=== PATIENT | male | born 1945 | race Caucasian/White ===

== ENCOUNTER → 2017-11-01 07:37 | Outpatient (CLI) | payer MEDICARE, SELFPAY ==
[2017-11-01 09:24] LABS: Calcium,Total 8.8 mg/dL (8.5-10.1)
== END ==
PROVIDERS: Family Provider Internal Medicine; PCP Internal Medicine; Visit Provider Physician Assistant
DX: D34 Benign neoplasm of thyroid gland (principal)
CPT/HCPCS: 36415; 82310; 84443

== ENCOUNTER → 2017-12-14 08:27 | Outpatient (CLI) | payer MEDICARE, SELFPAY ==
[2017-12-14 09:45] LABS: AST(SGOT) 28 U/L (15-37); Alanine Aminotransfer ALT/SGPT 41 U/L (16-61); Alkaline Phosphatase 83 U/L (45-117); Cholesterol 146 mg/dL (200); Globulin 3.1 g/dL (2.2-4.2); High Density Lipoprotein 31 mg/dL; Protein, Total 7.1 g/dL (6.4-8.2); Triglycerides 257 mg/dL; Very Low Density Lipoprotein 51 mg/dL (5-40)
== END ==
PROVIDERS: Physician Assistant Medical; Family Provider Internal Medicine; PCP Internal Medicine; Visit Provider Internal Medicine Cardiovascular Disease
DX: E78.5 Hyperlipidemia, unspecified (principal); Z79.899 Other long term (current) drug therapy
CPT/HCPCS: 36415; 80061; 80076

== ENCOUNTER → 2017-12-31 14:47 | Outpatient (CLI) | payer MEDICARE, SELFPAY ==
--- NOTE | 2017-12-31 14:47 | DT_ITS ---
This patient was seen during an EMR downtime December 24, 2017 - December 31, 2017. This patient may have a combination of paper and electronic documentation or all paper documentation. All documentation is viewable within the e-chart portion of [employer] for each patient visit.
[2017-12-31 15:49] LABS: Thyroid Stim Hormone (TSH) 5.21 uIU/mL (0.358-3.74)
== END ==
PROVIDERS: Family Provider Internal Medicine; PCP Internal Medicine; Visit Provider Surgery
DX: E03.9 Hypothyroidism, unspecified (principal)
CPT/HCPCS: 36415; 84443

== ENCOUNTER → 2018-02-27 15:32 | Outpatient (CLI) | payer MEDICARE, SELFPAY | PROVIDERS: Family Provider Internal Medicine; PCP Internal Medicine; Visit Provider Surgery | DX: E03.9 Hypothyroidism, unspecified (principal) | CPT/HCPCS: 36415; 84443 ==

== ENCOUNTER → 2018-04-26 11:49 | Outpatient (CLI) | payer MEDICARE, SELFPAY | PROVIDERS: Family Provider Internal Medicine; PCP Internal Medicine; Referring Provider Surgery; Visit Provider Surgery | DX: D34 Benign neoplasm of thyroid gland (principal) | CPT/HCPCS: 36415; 84443 ==

== ENCOUNTER → 2019-10-07 07:47 | Outpatient (CLI) | payer MEDICARE, SELFPAY ==
[2019-03-18 14:44] VITALS: BMI 27.3
[2019-10-07 09:51] LABS: AST(SGOT) 26 U/L (15-37); Alanine Aminotransfer ALT/SGPT 35 U/L (16-61); Albumin, Serum 3.9 g/dL (3.2-5.0); Alkaline Phosphatase 58 U/L (45-117); Bilirubin, Direct 0.17 mg/dL (0.00-0.30); Cholesterol 126 mg/dL (200); Globulin 2.9 g/dL (2.2-4.2); High Density Lipoprotein 37 mg/dL; Protein, Total 6.8 g/dL (6.4-8.2); Triglycerides 162 mg/dL; Very Low Density Lipoprotein 32 mg/dL (5-40)
== END ==
PROVIDERS: PCP Internal Medicine; Referring Provider Internal Medicine Cardiovascular Disease; Visit Provider Internal Medicine Cardiovascular Disease
DX: E78.00 Pure hypercholesterolemia, unspecified (principal)
CPT/HCPCS: 36415; 80061; 80076

== ENCOUNTER 2020-09-20 06:14 | Outpatient (RCR) | payer MEDICARE, SELFPAY ==
[2019-10-09 15:59] VITALS: BMI 26.6
== END 2020-09-20 23:59 ==
LOC: IMMUN 06:14
PROVIDERS: PCP Internal Medicine; Visit Provider Family Medicine
DX: Z23 Encounter for immunization (principal)
CPT/HCPCS: 0011A; 0012A

== ENCOUNTER → 2024-02-27 | Outpatient (CLI) | payer MEDICARE, SELFPAY ==
--- NOTE | 2024-02-27 10:01 | RAD_ITS ---
EXAM: XR CHEST, 2 VIEWS CLINICAL INDICATION: cad TECHNIQUE: Frontal and lateral views of the chest. COMPARISON: 08/13/2017 FINDINGS: LUNGS AND PLEURAL SPACES: No significant abnormality. No consolidation or edema. No pneumothorax. No effusion. HEART: Coronary artery calcifications are partially visualized. No cardiomegaly. MEDIASTINUM: Central airways and mediastinal contour are unremarkable. BONES/JOINTS: No significant abnormality. No acute fracture. SOFT TISSUES: No significant abnormality. VASCULATURE: Atherosclerosis. RAD/Chest PA and Lateral IMPRESSION: No acute findings in the chest. Electronically Signed: Clark Griffith DO at 23:38 EDT ,
[2024-02-27 10:43] LABS: Absolute Lymphocyte Count 2.05 X10^3/uL (0.83-4.51); Absolute Neutrophil Count 3.7 X10^3/uL (2.0-7.7); Basophil# 0.04 X10^3/uL; Basophil% 0.6 % (0-1); Eosinophil# 0.25 X10^3/uL; Eosinophils% 3.8 % (0-5); Hemoglobin 15.5 g/dL (13.0-16.5); Lymphocyte # 2.05 X10^3/ul (0.83-4.51); Lymphocyte % 31.3 % (19-41); Mean Corp Hgb Conc 33.7 g/dL (32-36); Mean Corpuscular Hgb 30.4 pg (27.0-32.0); Mean Corpuscular Volume 90.2 fL (80-94); Mean Platelet Vol. 8.3 fl (6.2-12.0); Monocyte# 0.47 X10^3/uL; Monocyte% 7.2 % (0-10); NRBC Flagged by Analyzer 0 % (0-5); Neutrophil # 3.72 X10^3/uL (2.7-7.7); Neutrophil % 56.8 % (47-70); Platelet Count 183 K/mm3 (150-450); RBC Distribution Width CV 12.8 % (11.6-14.6); RBC Distribution Width SD 42.3 fl (35.1-43.9); White Blood Count 6.6 K/mm3 (4.4-11.0)
[2024-02-27 10:51] LABS: Anion Gap 5 (5-15); BUN 12 mg/dL (7-18); BUN/Creat Ratio 12.9 RATIO (10-20); Calcium,Total 8.9 mg/dL (8.5-10.1); Chloride 109 mmol/L (98-107); Creatinine, Serum 0.93 mg/dL (0.70-1.30); EST Glomerular Filtration Rate 84 mL/min (>60); Est Glom Filt Rate - Afr Amer 102 mL/min (>60); Glucose 110 mg/dL (74-106); Potassium 3.9 mmol/L (3.5-5.1); Sodium Level 140 mmol/L (136-145)
--- NOTE | 2024-02-27 11:34 | STRESSREP ---
Stress Test Report Exercise myocardial perfusion stress test. 78-year-old man with a history of coronary artery disease Stress protocol: Resting EKG demonstrates normal sinus rhythm with interpolation of PVCs and a rate of 75 bpm resting blood pressure is 138/84 mmHg. The patient exercised according to the regular Sven protocol for a total duration of 5 minutes and 35 seconds attaining a maximum heart rate of 127 bpm which was 88% of maximum predicted heart rate; the maximum workload was 7.2 metabolic equivalents. At rest there were no ST or T wave changes noted to suggest ischemia and at peak exercise horizontal ST depression was noted in leads II, III and aVF of a maximum of approximately 1.85 mm and 2 mm noted in V6 suggestive of ischemia. These normalized during recovery. Occasional premature ventricular complexes were also noted. The patient did experience chest discomfort at peak exercise described as an ache to the left side and eased on discontinuation of the test. The peak blood pressure was 190/70 mmHg with a rate-pressure product of 19,500. Myocardial perfusion protocol. 14.1 mCi of technetium 99m sestamibi was injected at rest. The patient exercised according to regular Sven protocol for total duration of 5-1/2 minutes and at peak exercise 44.4 mCi of technetium 99m sestamibi was injected stress images were obtained stress and rest images were reconstructed in comparing the short axis vertical long and horizontal long axis. Gated images were also obtained. Perfusion SPECT analysis: Review of the stress images demonstrate normal uptake of tracer noted in all areas of the myocardium with a perfusion defect noted in the inferior apical wall. The resting images similarly demonstrate normal uptake of tracer noted in all areas of the myocardium. The above is suggestive of inferior apical ischemia at a moderate workload. Gated SPECT analysis: The gated ejection fraction is 63%. Conclusion: Abnormal exercise myocardial perfusion stress test at a moderate workload with inferior apical ischemia Preserved ejection fraction. Clinical angina noted during exercise.
== END | disposition home or self-care (01) ==
PROVIDERS: PCP Internal Medicine; Referring Provider Internal Medicine Cardiovascular Disease; Visit Provider Internal Medicine Cardiovascular Disease
DX: I25.10 Atherosclerotic heart disease of native coronary artery without angina pectoris (principal); Z95.5 Presence of coronary angioplasty implant and graft; I10 Essential (primary) hypertension
CPT/HCPCS: 36415; 71046; 78452; 80048; 85025; 93017; A9500; A4216

== ENCOUNTER 2024-03-04 06:50 | Day surgery (SDC) | payer MEDICARE, SELFPAY ==
[2024-03-03 08:54] VITALS: BMI 28.4
--- NOTE | 2024-03-04 08:36 | CL.D_ITS ---
Patient Name: ELADIA BARRERA Study Date: 03/04/2024 Performing: Gene Khalil MD Ht: 70 inches 177.8 cm : 1945 Wt: 198 lbs 89.81 kg Age: 78 Gender: male BSA: 2.08 PROCEDURE(S) PERFORMED [id number])LHC/COR/LV CLINICAL PROFILE AND INDICATIONS Indications: Stable Known CAD Heart Failure: None Stress/Imaging Date: 02/27/24Stress Test with SPECT MPI: Positive Intermediate Risk CAD Presentations: Stable angina. CONCLUSIONS Severe two-vessel disease noted in a calcified vessel and preserved ejection fraction. RECOMMENDATIONS Will consider coronary artery bypass surgery DESCRIPTION OF PROCEDURE The patient arrived to the procedure lab. The risks and benefits of the procedure as well as a full description of our services here and current unavailability of surgical backup were fully explained to the patient and/or their significant other prior to the catheterization. The Timeout was completed, verifying the correct patient and procedure. The patient's procedural site was prepped and draped in the usual fashion. Local anesthetic was given subcutaneously to right radial region with Lidocaine 2%. Using a modified Seldinger technique, arterial access was obtained via the right radial artery, a 6Fr sheath was inserted. Right Coronary Artery selective angiography was then performed in multiple views using a 5 Fr. 4.0 [place] catheter. Left Coronary Artery selective angiography was performed in multiple views using a 5 Fr. 4.0 [place] catheter. Left Ventriculography was performed in TANG projection using a 5 Fr. Pigtail catheter. LV to AO pullback pressures were then recorded.The arterial sheath was pulled and a TR Band was applied for hemostasis. 12cc air CORONARY ANGIOGRAPHY DOMINANCE: Right Dominant LEFT HEART ASSESSMENT Left Ventricular Ejection Fraction: by LV Gram 60 % Normal LV wall motion Normal Left Ventricular systolic function LEFT MAIN: Mild calcification in distal left main 30% stenosis LEFT ANTERIOR DESCENDING ARTERY: Moderate amount of calcification noted in the proximal and mid segments with a high-grade 80 to 90% stenosis noted in the midsegment after first diagonal and septal individualized education plan aide. Distally there is a 60% stenosis and diffuse disease noted in the vessel. CIRCUMFLEX ARTERY: Mild luminal irregularities less than 30% RAMUS: Previously placed stent in the proximal segment with immediate post stent 90% stenosis noted good distal target vessel noted. RIGHT CORONARY ARTERY: Moderate luminal irregularities up to 50% COMPLICATIONS No Complications PROCEDURE MEDICATIONS Fentanyl 50 mcg IV Versed 1 mg IV Oxygen: 2 L/min via nasal cannula Heparin given IA 03/04/2024 07:54:22 Verapamil 2.5mg, Ntg 100mcgs, 3000 units of Heparin given IA 03/04/2024 07:54:22 SUMMARY OF HEMODYNAMIC DATA Time AIR REST ECG 07:15:35 AO 117/48 (77) SA 08:08:39 LV 149/-12, -3 08:16:25 LV 151/-10, -1 08:16:33 LV 162/8, 20 08:17:11 LV 166/7, 18 08:17:19 LV 148/7, 22 08:18:03 LVp 144/8, 24 08:18:07 AOp 150/62 (96) 08:18:14 08:32:23 Signed By Gene Khalil MD On 03/04/2024 08:35:53 Gene Khalil MD
== END 2024-03-04 10:30 | disposition home or self-care (01) ==
PROVIDERS: PCP Internal Medicine; Referring Provider Internal Medicine Cardiovascular Disease; Visit Provider Internal Medicine Cardiovascular Disease
DX: I25.118 Atherosclerotic heart disease of native coronary artery with other forms of angina pectoris (principal); I10 Essential (primary) hypertension; E78.5 Hyperlipidemia, unspecified; Z79.82 Long term (current) use of aspirin; Z79.01 Long term (current) use of anticoagulants; Z79.899 Other long term (current) drug therapy; Z95.5 Presence of coronary angioplasty implant and graft
CPT/HCPCS: 93458; 99152; 99153; J7040; Q9967; C1769; C1894

== ENCOUNTER 2024-03-17 15:15 | Emergency (ER) | payer MEDICARE, SELFPAY ==
[2024-03-17] VITALS (8 sets, daily range): BP systolic 115–127; BP diastolic 62–73; PULSE 57–72; RESP 13–19; TEMP 36–36.8; O2SAT 94–99; BMI 28.2
--- NOTE | 2024-03-17 15:21 | EKG12_ITS ---
Test Reason : CP/DIZZY Blood Pressure : / mmHG Vent. Rate : 073 BPM Atrial Rate : 073 BPM P-R Int : 156 ms QRS Dur : 114 ms QT Int : 396 ms P-R-T Axes : 037 -42 -07 degrees QTc Int : 436 ms Normal sinus rhythm Left axis deviation Moderate voltage criteria for LVH, may be normal variant ( R in aVL , Gilles product ) Inferior infarct , age undetermined Abnormal ECG Confirmed by Anand Lake ([id number]), photographic editor BLACK GOINS ([id number]) on 03/19/2024 8:19:52 AM Referred By: ES/TL Confirmed By:Anand Lake
[2024-03-17 15:42] LABS: Absolute Lymphocyte Count 2.05 X10^3/uL (0.83-4.51); Absolute Neutrophil Count 6.6 X10^3/uL (2.0-7.7); Basophil# 0.03 X10^3/uL; Basophil% 0.3 % (0-1); Eosinophil# 0.15 X10^3/uL; Eosinophils% 1.6 % (0-5); Hematocrit 43.4 % (40-54); Hemoglobin 15.1 g/dL (13.0-16.5); Lymphocyte # 2.05 X10^3/ul (0.83-4.51); Lymphocyte % 21.6 % (19-41); Mean Corp Hgb Conc 34.8 g/dL (32-36); Mean Corpuscular Hgb 30.6 pg (27.0-32.0); Mean Platelet Vol. 8.1 fl (6.2-12.0); Monocyte# 0.62 X10^3/uL; Monocyte% 6.5 % (0-10); NRBC Flagged by Analyzer 0 % (0-5); Neutrophil % 69.7 % (47-70); Platelet Count 218 K/mm3 (150-450); RBC Distribution Width CV 12.8 % (11.6-14.6); RBC Distribution Width SD 41.1 fl (35.1-43.9); Red Blood Count 4.93 M/mm3 (4.6-6.2); White Blood Count 9.5 K/mm3 (4.4-11.0)
[2024-03-17 15:59] LABS: Anion Gap 8 (5-15); BUN 15 mg/dL (7-18); BUN/Creat Ratio 11.5 RATIO (10-20); Calcium,Total 9.6 mg/dL (8.5-10.1); Chloride 108 mmol/L (98-107); Creatinine, Serum 1.31 mg/dL (0.70-1.30); EST Glomerular Filtration Rate 56 mL/min (>60); Est Glom Filt Rate - Afr Amer 68 mL/min (>60); Estimated Creatinine Clearance 53.11 ml/min; Glucose 136 mg/dL (74-106); Sodium Level 141 mmol/L (136-145); Troponin-I HS (w/2H Reflex) 8 pg/mL (3.0-78.0)
--- NOTE | 2024-03-17 16:00 | RAD_ITS ---
INDICATION: chest pain EXAMINATION/TECHNIQUE: X-RAY - XR Chest 1 View COMPARISON: February 27, 2024 FINDINGS: LINES/DEVICES: None. LUNGS: No consolidation, edema or effusion. No pneumothorax. MEDIASTINUM AND CARDIOVASCULAR STRUCTURES: Cardiac silhouette not enlarged. Central airways and mediastinal contour are unremarkable. BONES AND SOFT TISSUES: Mild degenerative vertebral changes. RAD/Chest 1 View (Portable) IMPRESSION: No radiographic evidence of acute cardiopulmonary disease. Electronically Signed: Tej Singleton DO at 16:27 EDT ,
--- NOTE | 2024-03-17 17:17 | CT_ITS ---
INDICATION: pain EXAMINATION: CTA CHEST, ABDOMEN AND PELVIS WITH CONTRAST - TECHNIQUE: A CTA of the chest, abdomen, and pelvis is obtained with sagittal and coronal reconstructed MIP views. Three-dimensional surface rendered sequence of the thoracic and abdominal aorta was obtained. The protocol utilizes one or more of the following dose reduction techniques: automated exposure control, adjustment of mA and/or kV according to patient size,and/or use of iterative reconstruction technique. mL of Isovue-370. Oral contrast: None. RADIATION DOSAGE (If Supplied By Facility): CTDIvol = ( 14.27 ) mGy, DLP = ( 1231.13 ) mGycm COMPARISON: FINDINGS: CT CHEST: THORACIC AORTA: No atheromatous disease, no aneurysmal changes or dissection. ABDOMINAL AORTA: No aneurysm or dissection. Mild atherosclerotic calcifications without hemodynamically significant stenosis. The iliac arteries are mildly calcified. Mildly calcified bilateral renal arteries with less than 50% luminal stenosis LUNGS: The lungs are well-expanded without acute or chronic changes. No effusions or pneumothorax. MEDIASTINUM: The thyroid gland is normal. No mediastinal or hilar adenopathy. HEART: Heart is normal size. No pericardial effusion. CT ABDOMEN AND PELVIS: LIVER: The liver enhances homogeneously. Hypoattenuated of 2.3 cm lesions are noted in the liver. GALLBLADDER: The CBD is normal. Normal gallbladder. SPLEEN: Normal. PANCREAS: No masses or inflammation. ADRENAL GLANDS: 1.1 cm right adrenal nodule. KIDNEYS AND URETERS: The kidneys both enhance appropriately. There are normal size and shape. No hydronephrosis or nephrolithiasis. No renal masses or cysts. STOMACH: Normal. SMALL BOWEL: No abnormal distention of the small bowel. MESENTERY: No mesenteric inflammation. No ascites. COLON: Mild diverticulosis, masses or inflammation. The colon otherwise is normal. There is a large fatty ileocecal valve. Small fatty umbilical hernia. Fatty density in the left inguinal canal. IVC: Normal. RETROPERITONEUM: No retroperitoneal lymphadenopathy. PELVIC STRUCTURES: Normal bladder. SOFT TISSUES ABDOMEN: The anterior abdominal wall is normal. SOFT TISSUE CHEST: The extrathoracic soft tissues are normal. BONES: No fractures or significant degenerative disease. CT/CTA Chst, Abd, Pel W and/or WO IMPRESSION: Multiple hypoattenuated hepatic nodular lesions. Correlate with ultrasound if needed. Small fatty umbilical hernia. Fatty density in the left inguinal canal No aortic dissection or aneurysm. Electronically Signed: Tej Singleton DO at 18:40 EDT Reading Location ID and State: [facility] / [place] Tel [phone], Service support ,
[2024-03-17] MEDS: 0.9% Normal Saline (500mL Bag) 500 ML 999 ML IV (17:23)
[2024-03-17 17:37] LABS: Reflex Troponin-HS? (from REC) Y
[2024-03-17 18:10] LABS: Troponin-I HS 8 pg/mL (3.0-78.0)
--- NOTE | 2024-03-17 18:19 | EDS_ITS ---
HPI History of Present Illness Chief Complaint: Chest Pain Informant: patient and spouse/S.O. Narrative Narrative: Presents with spouse for evaluation pain across his upper abdomen left to right side around 1:15 PM. He sitting symptoms started. Prior to that 1 PM had visual aura bilateral eye with blurry vision there is no loss of vision. Symptoms persistent he took an antiacid did not resolve until he came to the emergency department. Significant history he states he has coronary disease had a abnormal cath by Dr. Khalil, has pending two-vessel CABG by Dr. Norman craig at [facility]. He states during a routine stress test had angina symptoms in his left upper chest leading to his heart cath. Previous to that he has had a previous stent 2010. He states the symptoms are different. Father with strong coronary disease history of MIs. Father had abdominal aneurysms repair. Patient states he has aneurysm evaluated at the age of [age] years ago. Denies any current nausea or vomiting. Symptom subsided during my evaluation. Prior Similar Symptoms: No Recent Illness/Hospitalization: No CVD Risk Factors: Positive for Hypertension, Hypercholesterolemia and Family History 1' </=55; Negative for Diabetes or Smoking PE Risk Factors: Negative for Recent Travel/Surgery, Recent Immobilization or Prior DVT or PE [facility] Medical History Cervical stenosis of spine Essential (primary) hypertension Atherosclerotic heart disease of [place] coronary artery without angina pectoris Thyroid nodule Kidney stone Hyperlipemia Home Medications ?Medication ?Instructions ?Recorded ?Last Taken ?Type aspirin 81 mg tablet,delayed 81 mg PO QDAY preventative 07/30/17 03/04/24 History release (Adult Low Dose Aspirin) tamsulosin 0.4 mg capsule (Flomax) 0.4 mg PO QDAY urine flow 07/30/17 08/12/17 History psyllium husk 3.4 gram/5.4 gram 1 tbsp PO DAILY 03/18/19 Unknown History oral powder (Metamucil) rosuvastatin 40 mg tablet 40 mg PO DAILY #30 tabs 03/18/19 Unknown History cetirizine 10 mg tablet 10 mg PO DAILY 12/08/22 03/04/24 History fluticasone propionate 50 1 spray intranasal DAILY PRN nasal 12/08/22 03/04/24 History mcg/actuation nasal congestion spray,suspension (Allergy Relief (fluticasone)) levothyroxine 112 mcg tablet 112 mcg PO DAILY 12/08/22 Unknown History (Euthyrox) lisinopril 20 mg tablet 20 mg PO DAILY #90 tabs 07/08/23 Unknown Rx metoprolol tartrate 25 mg tablet 25 mg PO BID heart #180 tabs 07/08/23 Unknown Rx amlodipine 5 mg tablet 5 mg PO DAILY #30 tabs 03/04/24 Unknown Rx isosorbide mononitrate 30 mg 30 mg PO DAILY #30 tabs 03/04/24 Unknown Rx tablet,extended release 24 hr clobetasol 0.05 % scalp solution topical 03/17/24 Unknown History Allergy/AdvReac Type Severity Reaction Status Date / Time bacitracin Allergy Unknown Rash Verified 03/17/24 15:17 polymyxin B Allergy Unknown Rash Verified 03/17/24 15:17 Family History Father Aortic aneurysm Hx of CABG Lung cancer Mother CHF (congestive heart failure) Myocardial infarction Sister Hypertension CVA (cerebral vascular accident) Hyperlipemia Surgical History History of ankle surgery (06/30/22) History of tonsillectomy History of herniorrhaphy History of squamous cell carcinoma excision History of thyroidectomy (07/2017) History of left heart catheterization (08/15/17) History of coronary artery stent placement (09/01/10) History of removal of nevus Social History (Updated 03/17/24 @ 15:34 by Laina Clemente) household members: spouse housing: house service: Yes ([employer] ) current occupational status: retired Smoking Status: Never smoker second hand exposure: No alcohol intake: current alcohol intake frequency: holidays/special occasions only Alcohol type: beer substance use type: does not use what type of physical activity do you participate in: none frequency: does not exercise seatbelt use: always ROS ROS ED Constitutional Constitutional ED: Denies chills, fever(s) or sweats Eyes Eyes: Denies change in vision ENT ENT ED: Denies dysphagia or sore throat Cardiovascular Cardiovascular: Reports chest pain; Denies leg edema, palpitations or racing heartbeat Respiratory/Chest Respiratory/Chest: Denies cough, dyspnea or dyspnea on exertion Gastrointestinal Gastrointestinal: Reports abdominal pain; Denies diarrhea, nausea or vomiting Genitourinary Genitourinary ED: Denies dysuria, hematuria or urinary frequency Musculoskeletal Musculoskeletal: Denies back pain, extremity pain or neck pain Integumentary Denies rash or wounds Neurologic Neurologic: Denies headache(s), paresthesias or weakness EXAM Physical Exam Const Vital Signs: 03/17/24 15:17 03/17/24 15:21 03/17/24 15:33 Temperature 96.8 F L Temperature Source Temporal Pulse Rate 69 Respiratory Rate 18 Respiratory Effort Normal Non-Labored Blood Pressure 125/65 H Blood Pressure Mean 85 Pulse Ox 94 Oxygen Delivery Method Room Air Room Air 03/17/24 16:15 03/17/24 17:00 03/17/24 18:00 Temperature Temperature Source Pulse Rate 66 64 66 Respiratory Rate 16 16 19 H Respiratory Effort Blood Pressure 115/62 123/64 H 127/62 H Blood Pressure Mean 79 83 83 Pulse Ox 96 98 99 Oxygen Delivery Method Room Air Room Air Room Air 03/17/24 18:54 03/17/24 19:00 03/17/24 20:00 Temperature 98 F Temperature Source Pulse Rate 59 L 57 L 58 L Respiratory Rate 13 19 H 18 Respiratory Effort Blood Pressure 122/69 H 126/73 H 121/62 H Blood Pressure Mean 86 90 81 Pulse Ox 99 99 95 Oxygen Delivery Method Room Air Room Air 03/17/24 20:50 Temperature 98.2 F Temperature Source Pulse Rate 72 Respiratory Rate 18 Respiratory Effort Blood Pressure 116/72 Blood Pressure Mean 86 Pulse Ox 97 Oxygen Delivery Method Positive well nourished and well developed General Appearance ED: well developed and NAD HEENT Reports moist mucous membranes normocephalic and atraumatic Eyes EOMs intact bilaterally and conjunctivae normal General Eye ED: Yes normal appearance of both eyes Neck no lymphadenopathy and supple General: Negative for tenderness Chest Wall Chest: Negative for tenderness Resp normal respiratory effort and normal air movement Effort and Inspection: symmetric chest movement; Negative for respiratory distress Cardio regular rate, regular rhythm and no murmurs Peripheral Pulses: pulses 2+ throughout GI normal to inspection, nondistended, normoactive bowel sounds GI Narrative: Mild tenderness epigastrium. Negative Meade's McBurney's tenderness. Palpation: Negative for guarding or rebound tenderness present Back/Spine no CVA tenderness and no thoracic nor lumbar tenderness Extremity normal to inspection General Extremety ED: Negative for edema or tenderness General Extremity: Negative for edema Neuro oriented x3 and no sensory deficits noted Sensorium / Orientation: awake and alert Skin no rashes or lesions noted and no wounds MDM MDM MDM Narrative Medical decision making narrative: Interventions / MDM: Differential diagnosis: Atypical chest pain history of coronary disease Diagnosis considered but do not suspect: ACS however EKG no ischemic findings negative cardiac enzymes. Dissection of aorta, aneurysms however CT angiograms were negative. Pancreatitis however lipase normal. My EKG interpretation: Sinus rate of 73, no ST changes, T wave version lead III. Nonspecific. Imaging independently reviewed and interpreted by myself: 1 view chest x-ray shows no acute process. CT angiogram chest abdomen pelvis: No PE, no dissection or aneurysms. Incidental findings of hepatic lobe lesions hypodensities. External documents reviewed: N/A Test considered but not ordered:N/A ED course: Patient asymptomatic on my evaluation. Triage labs were ordered initial troponin with negative. Discussed with patient history of coronary disease pending CABG in 8 days. She will father history of aortic aneurysms. Last testing was 12 years ago for the patient. Discussed further evaluation for this. CT angiogram chest abdomen pelvis for further evaluation. I did add liver enzymes and lipase. CT scans are negative incidental hepatic lobe hypodensities. Discussed results with the patient. Delta troponin was negative. 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 We feel he is safe for discharge as his different symptoms with negative workup. Will plan for his outpatient CABG procedure in 8 days. Return precaution discussed with the patient. All questions were answered. Re-evaluation: stable Disposition discussed with patient/family/significant other: Patient significant other Case discussed with consulting clinician: Cardiology Dr. Longoria This note was generated with [employer] dictation software. It may contain incorrect words, spelling, and punctuation that were not noted in checking the note before signing. Lab Data Attestation: I reviewed the patient's lab results. Labs: Laboratory Results - last 24 hr 03/17/24 03/17/24 15:30 17:37 WBC 9.5 RBC 4.93 Hgb 15.1 Hct 43.4 MCV 88.0 MCH 30.6 MCHC 34.8 RDW Std Deviation 41.1 RDW Coeff of Sheila 12.8 Plt Count 218 MPV 8.1 Immature Gran % (Auto) 0.300 Neut % (Auto) 69.7 Lymph % (Auto) 21.6 Hendricks % (Auto) 6.5 Eos % (Auto) 1.6 Baso % (Auto) 0.3 Absolute Neuts (auto) 6.6 Absolute Lymphs (auto) 2.05 Nucleated RBC % 0 Sodium 141 Potassium 4.0 Chloride 108 H Carbon Dioxide 25.0 Anion Gap 8 BUN 15 Creatinine 1.31 H Estim Creat Clear Calc 53.11 Est GFR (MDRD) Af Amer 68 Est GFR (MDRD) Non-Af 56 L BUN/Creatinine Ratio 11.5 Glucose 136 H Calcium 9.6 Total Bilirubin 0.60 Direct Bilirubin 0.17 AST 20 ALT 27 Alkaline Phosphatase 53 Troponin I High Sens 8 8 Total Protein 5.6 L Albumin 3.1 L Globulin 2.5 Lipase 42 Radiography Diagnostic Testing: Clinical Impression(s) from Imaging Studies Chest X-Ray 03/17/24 16:00 IMPRESSION: No radiographic evidence of acute cardiopulmonary disease. Electronically Signed: Tej Singleton DO at 16:27 EDT , Chest/Abdomen/Pelvis CTA 03/17/24 17:17 IMPRESSION: Multiple hypoattenuated hepatic nodular lesions. Correlate with ultrasound if needed. Small fatty umbilical hernia. Fatty density in the left inguinal canal No aortic dissection or aneurysm. Electronically Signed: Tej Singleton DO at 18:40 EDT , Discharge Plan Triage Chief Complaint: Chest Pain ED Provider: Ck Romero Dx/Rx/DC Orders Clinical Impression: Chest pain, Abdominal pain Instructions: Abdominal Pain, ED Chest Pain, Uncertain Cause Prescriptions: No Action tamsulosin [Flomax] 0.4 mg capsule,extended release 24hr 0.4 mg PO QDAY aspirin [Adult Low Dose Aspirin] 81 mg tablet,delayed release (DR/EC) 81 mg PO QDAY rosuvastatin 40 mg tablet 40 mg PO DAILY Qty: 30 Patient Comments: TAKE 1 TABLET BY MOUTH EVERY DAY Metamucil 3.4 gram/5.4 gram powder 1 tbsp PO DAILY levothyroxine [Euthyrox] 112 mcg tablet 112 mcg PO DAILY cetirizine 10 mg tablet 10 mg PO DAILY fluticasone propionate [Allergy Relief (fluticasone)] 50 mcg/actuation spray,suspension 1 spray intranasal DAILY PRN (Reason: nasal congestion) Rx Instructions: administer into each nostril clobetasol 0.05 % solution TOPICAL Patient Comments: PLEASE SEE ATTACHED FOR DETAILED DIRECTIONS lisinopril 20 mg tablet 20 mg PO DAILY Qty: 90 3RF metoprolol tartrate 25 mg tablet 25 mg PO BID Qty: 180 3RF amlodipine 5 mg tablet 5 mg PO DAILY Qty: 30 1RF isosorbide mononitrate 30 mg tablet extended release 24 hr 30 mg PO DAILY Qty: 30 1RF Primary Care Provider: Bart Waterman Referrals: Bart Waterman MD [Primary Care Provider] - 1 Week Activity Restrictions/Additional Instructions: Cardiac workup negative. You had CTA chest abdomen pelvis negative for any aort ic pathology. Incidental findings of hepatic lesions of 2.3 cm in dimensions. Follow-up with your doctor for further testing as needed. Discussed with your cardiology team Dr. Longoria through the ED. Plan for your outpatient surgical intervention as planned. Print Language: Bangladeshi Disposition Disposition: Home, Self Care Discharge Date/Time: 03/17/24 20:50
[2024-03-17 18:39] LABS: AST(SGOT) 20 U/L (15-37); Alanine Aminotransfer ALT/SGPT 27 U/L (16-61); Albumin, Serum 3.1 g/dL (3.2-5.0); Alkaline Phosphatase 53 U/L (45-117); Bilirubin, Direct 0.17 mg/dL (0.00-0.30); Globulin 2.5 g/dL (2.2-4.2); Lipase 42 U/L (13-75); Protein, Total 5.6 g/dL (6.4-8.2)
--- NOTE | 2024-03-17 20:13 | ED.RN ---
Left message with call center, . They stated that they will call back.
== END 2024-03-17 20:50 | disposition home or self-care (01) ==
PROVIDERS: Emergency Provider Emergency Medicine; PCP Internal Medicine; Visit Provider Emergency Medicine
DX: R07.9 Chest pain, unspecified (principal); R10.10 Upper abdominal pain, unspecified; K76.9 Liver disease, unspecified; I25.10 Atherosclerotic heart disease of native coronary artery without angina pectoris; I10 Essential (primary) hypertension; E78.5 Hyperlipidemia, unspecified; H53.8 Other visual disturbances; Z79.82 Long term (current) use of aspirin; Z79.890 Hormone replacement therapy; Z79.899 Other long term (current) drug therapy; Z95.1 Presence of aortocoronary bypass graft; Z95.5 Presence of coronary angioplasty implant and graft
CPT/HCPCS: 71045; 71275; 74174; 80048; 80076; 83690; 84484; 85025; 93005; 96360; 99284; J7040; Q9967; A4216

== ENCOUNTER → 2024-06-23 | Outpatient (CLI) | payer MEDICARE, SELFPAY ==
[2024-06-23 11:12] LABS: Anion Gap 5 (5-15); BUN 7 mg/dL (7-18); BUN/Creat Ratio 9.5 RATIO (10-20); Calcium,Total 9.4 mg/dL (8.5-10.1); Chloride 109 mmol/L (98-107); Creatinine, Serum 0.74 mg/dL (0.70-1.30); EST Glomerular Filtration Rate 109 mL/min (>60); Est Glom Filt Rate - Afr Amer 132 mL/min (>60); Glucose 74 mg/dL (74-106); Potassium 3.4 mmol/L (3.5-5.1); Sodium Level 142 mmol/L (136-145)
== END | disposition home or self-care (01) ==
PROVIDERS: PCP Internal Medicine; Referring Provider Nurse Practitioner Family; Visit Provider Nurse Practitioner Family
DX: I10 Essential (primary) hypertension (principal)
CPT/HCPCS: 36415; 80048

== ENCOUNTER 2024-11-10 04:49 | Emergency (ER) | payer MEDICARE, SELFPAY ==
[2024-11-10 04:50] VITALS: PULSE 61; RESP 17; TEMP 36.5; O2SAT 99; BMI 28.3
[2024-11-10 04:53] VITALS: BP 184/85; PULSE 63; RESP 18; TEMP 36.5; O2SAT 100
--- NOTE | 2024-11-10 05:04 | CT_ITS ---
PROCEDURE: ABDOMEN/PELVIS W IV CONT ONLY 11/10/2024 REASON FOR EXAM: UPPER ABD PAIN, NAUSEA TECHNIQUE: Abdomen and pelvis CT with intravenous contrast. Coronal and Sagittal reconstruction series were provided. PATIENT PREPARATION: Per protocol ORAL CONTRAST TYPE: None. CONTRAST: 98 cc Isovue 370 IV One or more dose reduction techniques were used (e.g., Automated exposure control, adjustment of the mA and/or kV according to patient size, use of iterative reconstruction technique. RADIATION DOSE SUMMARY: CTDlvol: 18.11 mGy DLP: 980.46 mGycm COMPARISON: None available FINDINGS: Small bandlike area at the posterior right base may represent atelectasis or scar. A couple of subpleural noncalcified nodules suggested at the left posterior recess measuring 6-7 mm for example axial 23. May consider follow-up nonemergent chest CT, correlate with history. Status post median sternotomy with note of epicardial pacing wires. Right coronary calcification. Multiple hepatic cysts, incidental. The liver, gallbladder, adrenal glands, kidneys, pancreas and spleen appear within limits. Bilateral symmetric nephrograms and perinephric stranding, nonspecific without hydronephrosis. Aortoiliac atherosclerotic calcification without aneurysm. No adenopathy. No bowel dilation or free air. Normal caliber appendix without secondary signs. Diverticulosis without diverticulitis. The bladder appears within limits. Enlarged, mildly lobular appearing prostate measuring 5.3 cm. Small fat containing left inguinal hernia without stranding. Status post right herniorrhaphy. Very small fat containing umbilical hernia without stranding. No free fluid. Lower lumbar spondylosis/discogenic change. CT/Abdomen/Pelvis W IV Cont ONLY IMPRESSION: No evidence of acute intra-abdominal process, clinically correlate. A couple of subpleural noncalcified nodules suggested at the left posterior rec ess measuring 6-7 mm for example axial 23. May consider follow-up nonemergent chest CT, correlate with history. Reading Location: [id number]
--- NOTE | 2024-11-10 05:07 | ED.VIS.GI ---
HPI HPI - GI History of Present Illness Chief Complaint: Abd Pain Informant: patient Narrative Narrative: 79-year-old male presents around 5 AM for about 3 hours worth of upper abdominal pain wrapping around like a band across his upper abdomen and into his back. Some nausea but no vomiting. Steady pain not colicky. He is getting sharp occasional twinges of more severe discomfort in his right upper quadrant. Never had this before. No history of any abdominal surgeries. Normal bowel movement last night. Ate some potato chips for he went to bed. Denies any chest discomfort or trouble breathing. No fevers or chills or other recent illness. No diarrhea when he had a bowel movement last night and no blood or melena. [facility] Medical History Cervical stenosis of spine Essential (primary) hypertension Atherosclerotic heart disease of [place] coronary artery without angina pectoris Thyroid nodule Kidney stone Hyperlipemia Home Medications ?Medication ?Instructions ?Recorded ?Last Taken ?Type aspirin 81 mg tablet,delayed 81 mg PO QDAY preventative 07/30/17 03/04/24 History release (Adult Low Dose Aspirin) tamsulosin 0.4 mg capsule (Flomax) 0.4 mg PO QDAY urine flow 07/30/17 08/12/17 History psyllium husk 3.4 gram/5.4 gram 1 tbsp PO DAILY 03/18/19 Unknown History oral powder (Metamucil) rosuvastatin 40 mg tablet 40 mg PO DAILY #30 tabs 03/18/19 Unknown History cetirizine 10 mg tablet 10 mg PO DAILY 12/08/22 03/04/24 History fluticasone propionate 50 1 spray intranasal DAILY PRN nasal 12/08/22 03/04/24 History mcg/actuation nasal congestion spray,suspension (Allergy Relief (fluticasone)) levothyroxine 112 mcg tablet 112 mcg PO DAILY 12/08/22 Unknown History (Euthyrox) lisinopril 20 mg tablet 20 mg PO BID #180 tabs 06/06/24 Unknown Rx amlodipine 5 mg tablet 5 mg PO QDAY #30 tabs 06/26/24 Unknown Rx metoprolol tartrate 25 mg tablet 25 mg PO BID heart #180 tabs 08/06/24 Unknown Rx clobetasol 0.05 % scalp solution 1 applic topical 11/10/24 Unknown History Allergy/AdvReac Type Severity Reaction Status Date / Time bacitracin Allergy Unknown Rash Verified 11/10/24 04:50 polymyxin B Allergy Unknown Rash Verified 11/10/24 04:50 Family History Father Aortic aneurysm Hx of CABG Lung cancer Mother CHF (congestive heart failure) Myocardial infarction Sister Hypertension CVA (cerebral vascular accident) Hyperlipemia Surgical History S/P CABG x 2 History of ankle surgery (06/30/22) History of tonsillectomy History of herniorrhaphy History of squamous cell carcinoma excision History of thyroidectomy (07/2017) History of left heart catheterization (08/15/17) History of coronary artery stent placement (09/01/10) History of removal of nevus Social History household members: spouse housing: house current occupational status: retired Smoking Status: Never smoker second hand exposure: No alcohol intake: current alcohol intake frequency: holidays/special occasions only Alcohol type: beer substance use type: does not use caffeine: Yes Type: coffee Number of servings: 2 what type of physical activity do you participate in: none frequency: does not exercise seatbelt use: always ROS ROS ED Constitutional Constitutional ED: Denies chills or fever(s) Eyes Eyes: Denies change in vision or diplopia ENT ENT ED: Denies rhinorrhea or sore throat Cardiovascular Cardiovascular: Denies chest pain or palpitations Respiratory/Chest Respiratory/Chest: Denies cough or dyspnea Gastrointestinal Gastrointestinal: Reports abdominal pain and nausea; Denies diarrhea, hematochezia, melena or vomiting Genitourinary Genitourinary ED: Denies dysuria or hematuria Musculoskeletal Musculoskeletal: Reports back pain; Denies neck pain Integumentary Denies abscess or rash Neurologic Neurologic: Denies headache(s), paresthesias or weakness Psychiatric Psychiatric: Denies anxiety or suicidal thoughts EXAM Physical Exam Const Vital Signs: 11/10/24 04:50 11/10/24 04:53 11/10/24 05:53 Temperature 97.7 F L 97.7 F L 97.7 F L Temperature Source Oral Oral Oral Pulse Rate 61 63 58 L Respiratory Rate 17 18 16 Blood Pressure 184/85 H 152/68 H Blood Pressure Mean 118 96 Pulse Ox 99 100 97 Oxygen Delivery Method Room Air Room Air Room Air Positive well nourished and well developed General Appearance ED: well developed and NAD HEENT Reports moist mucous membranes normocephalic and atraumatic Eyes PERRL and EOMs intact bilaterally Neck full ROM and supple Resp normal respiratory effort and clear to auscultation bilaterally Cardio regular rate, regular rhythm and no murmurs GI non-distended GI Narrative: Tender in the epigastrium and right upper quadrant. Negative Meade's. More tender in the epigastrium than anywhere else, and has some twinges of involuntary guarding but no rebound tenderness. No lower abdominal tenderness. No pulsatile mass. Auscultation: normoactive bowel sounds Palpation: soft Back/Spine no CVA tenderness General Back: other FROM Extremity normal to inspection General Extremety ED: Negative for edema, pulses abnormal or tenderness General Extremity: Negative for edema or pulses abnormal Neuro oriented x3, CN's II-XII intact bilaterally and no sensory deficits noted Sensorium / Orientation: awake and alert Motor Exam: strength 5/5 throughout Skin no rashes or lesions noted and no wounds MDM MDM MDM Narrative Medical decision making narrative: Patient is in no distress, he states the pain is not severe, his blood pressure is 184/85 on initial presentation. Differential includes cholelithiasis/biliary colic, acute pancreatitis, AAA, right-sided kidney stone/obstructive uropathy, less likely right lower lobe pneumonia since he has been no symptoms of that, and also possible upper GI etiologies. Patient presents when ultrasound is not in the hospital, so I did a screening bedside ultrasound of his gallbladder given his age, he does have a mild positive sonographic Meade's, as well as a negative clinical Meade sign, but I see no evidence of cholelithiasis, gallbladder wall thickening, it is a little distended but not necessarily abnormally so, and I do not see any pericholecystic fluid to make acute cholecystitis the obvious diagnosis. For these reasons, we treated his pain and obtained labs as well as a CT of the abdomen/pelvis. Those labs are all normal and reviewed by myself, his urine is unremarkable ruling out infection. I reviewed the CT images as well as the results which I agree with, it is basically normal/negative nothing acute. On reevaluation after Toradol 10 mg and morphine 2 mg, his pain is resolved. I reexamined him. He is nontender throughout. His lipase is normal. I do not think he needs to be admitted to the hospital, his blood pressure is down to 152. I think getting an official ultrasound of his gallbladder would be most reasonable and having him follow-up with surgery as an outpatient, or return to the ER for recurrent significant symptoms. He is comfortable with that plan. Lab Data Attestation: I reviewed the patient's lab results. Labs: Laboratory Results - last 24 hr 11/10/24 11/10/24 11/10/24 04:45 04:55 05:55 WBC 7.7 RBC 5.19 Hgb 16.2 Hct 45.5 MCV 87.7 MCH 31.2 MCHC 35.6 RDW Std Deviation 43.3 RDW Coeff of Sheila 13.5 Plt Count 190 MPV 8.3 Immature Gran % (Auto) 0.300 Neut % (Auto) 48.1 Lymph % (Auto) 36.4 [place] % (Auto) 9.1 Eos % (Auto) 5.7 H Baso % (Auto) 0.4 Absolute Neuts (auto) 3.7 Absolute Lymphs (auto) 2.80 Nucleated RBC % 0 Sodium 143 Potassium 4.7 Chloride 105 Carbon Dioxide 25.7 Anion Gap 12 BUN 14 Creatinine 0.96 Estim Creat Clear Calc 69.23 Est GFR (MDRD) Non-Af 81 BUN/Creatinine Ratio 14.2 Glucose 105 H Calcium 9.8 Total Bilirubin 0.43 AST 42 H ALT 32 Alkaline Phosphatase 80 Total Protein 6.8 Albumin 4.3 Globulin 2.5 Albumin/Globulin Ratio 1.7 Lipase 63 Urine Color Yellow Urine Clarity Clear Urine pH 6.5 Ur Specific [place] 1.010 Urine Protein 30 H Urine Glucose (UA) Normal Urine Ketones Negative Urine Occult Blood 10 H Urine Nitrite Negative Urine Bilirubin Negative Urine Urobilinogen Normal Ur Leukocyte Esterase Negative Urine RBC 0-5 SEEN Urine WBC 0 SEEN Ur Squamous Epith Cells 0-5 SEEN Urine Bacteria 0 SEEN Urine Mucus 0 SEEN U Random Total Protein Cancelled Radiography Diagnostic Testing: Clinical Impression(s) from Imaging Studies Abdomen/Pelvis CT 11/10/24 05:04 IMPRESSION: No evidence of acute intra-abdominal process, clinically correlate. A couple of subpleural noncalcified nodules suggested at the left posterior recess measuring 6-7 mm for example axial 23. May consider follow-up nonemergent chest CT, correlate with history. Reading Location: [facility] Discharge Plan Triage Chief Complaint: Abd Pain ED Provider: Olegario Puente Dx/Rx/DC Orders Clinical Impression: Acute abdominal pain in right upper quadrant, Acute epigastric pain Instructions: ED Abdominal Pain Gallstone Poss, ED Epigastric Pain Uncertain Cause Prescriptions: No Action tamsulosin [Flomax] 0.4 mg capsule,extended release 24hr 0.4 mg PO QDAY aspirin [Adult Low Dose Aspirin] 81 mg tablet,delayed release (DR/EC) 81 mg PO QDAY rosuvastatin 40 mg tablet 40 mg PO DAILY Qty: 30 Patient Comments: TAKE 1 TABLET BY MOUTH EVERY DAY Metamucil 3.4 gram/5.4 gram powder 1 tbsp PO DAILY levothyroxine [Euthyrox] 112 mcg tablet 112 mcg PO DAILY cetirizine 10 mg tablet 10 mg PO DAILY fluticasone propionate [Allergy Relief (fluticasone)] 50 mcg/actuation spray,suspension 1 spray intranasal DAILY PRN (Reason: nasal congestion) Rx Instructions: administer into each nostril metoprolol tartrate 25 mg tablet 25 mg PO BID Qty: 180 3RF clobetasol 0.05 % solution 1 applic TOPICAL Patient Comments: APPLY FEW DROPS ALONG HAIRLINE & MASSAGE INTO SKIN 1-2X DAILY X2 WKS, THEN TAKE 1 WK BREAK lisinopril 20 mg tablet 20 mg PO BID Qty: 180 3RF amlodipine 5 mg tablet 5 mg PO QDAY Qty: 30 11RF Other Ambulatory Orders: Gallbladder (Routine) Facility: [facility] - Location: [facility] Ordered By: Dr. Olegario Puente Primary Care Provider: Bart Waterman Referrals: Ottoniel Rosas MD [Med Staff - Active Staff] - (call for appt to be seen at some point after your gallbladder ultrasound) Bart Waterman MD [Primary Care Provider] - Print Language: French Disposition Disposition: Home, Self Care
[2024-11-10] MEDS: Morphine 2 MG/ML Syringe IV (05:11)
[2024-11-10] MEDS: Ketorolac 15 MG/ML Vial IV (05:11)
[2024-11-10] MEDS: Ondansetron 4 MG/2 ML Vial IV (05:11)
[2024-11-10 05:22] LABS: Absolute Neutrophil Count 3.7 X10^3/uL (2.0-7.7); Basophil# 0.03 X10^3/uL; Basophil% 0.4 % (0-1); Eosinophil# 0.44 X10^3/uL; Eosinophils% 5.7 % (0-5); Hematocrit 45.5 % (40-54); Hemoglobin 16.2 g/dL (13.0-16.5); Lymphocyte % 36.4 % (19-41); Mean Corp Hgb Conc 35.6 g/dL (32-36); Mean Corpuscular Hgb 31.2 pg (27.0-32.0); Mean Corpuscular Volume 87.7 fL (80-94); Mean Platelet Vol. 8.3 fl (6.2-12.0); Monocyte% 9.1 % (0-10); NRBC Flagged by Analyzer 0 % (0-5); Neutrophil # 3.71 X10^3/uL (2.7-7.7); Neutrophil % 48.1 % (47-70); Platelet Count 190 K/mm3 (150-450); RBC Distribution Width CV 13.5 % (11.6-14.6); RBC Distribution Width SD 43.3 fl (35.1-43.9); Red Blood Count 5.19 M/mm3 (4.6-6.2); White Blood Count 7.7 K/mm3 (4.4-11.0)
[2024-11-10 05:53] VITALS: BP 152/68; PULSE 58; RESP 16; TEMP 36.5; O2SAT 97
[2024-11-10 06:06] LABS: Bacteria 0 SEEN /hpf (None Seen); Mucous, Urine 0 SEEN /hpf (<or=2+); White Blood Cells 0 SEEN /hpf (0-5)
[2024-11-10 06:07] LABS: Color, Urine Yellow (Yellow); Glucose, Dipstick Normal (Normal); Ketone-Dipstick Negative (Negative); Leukocyte Esterase-Dipstick Negative /ul (Negative); Nitrite-Dipstick Negative (Negative); Occult Blood-Urine 10 /ul (Negative); Urine Bilirubin Dipstick Negative (Negative); Urine Clarity Clear (Clear); Urine Urobilinogen Normal (Normal); Urine pH 6.5 (5.0 - 8.0)
[2024-11-10 06:21] LABS: Protein-Dipstick 30 mg/dl (Negative)
[2024-11-10 06:21] LABS: Lipase 63 U/L (13-75)
[2024-11-10 06:22] LABS: Red Blood Cells-Urine 0-5 SEEN /hpf (0-5); Squamous Epithelial Cells - UA 0-5 SEEN /hpf (0-5)
[2024-11-10 06:23] LABS: ALB/GLOB Ratio 1.7 RATIO (0.9-2.4); AST(SGOT) 42 U/L (<=37); Alanine Aminotransfer ALT/SGPT 32 U/L (<=46); Albumin, Serum 4.3 g/dL (3.4-4.8); Alkaline Phosphatase 80 U/L (40-129); Anion Gap 12 (5-15); BUN 14 mg/dL (4-19); BUN/Creat Ratio 14.2 RATIO (10-20); Calcium,Total 9.8 mg/dL (7.6-11.0); Carbon Dioxide 25.7 mmol/L (21.0-32.0); Chloride 105 mmol/L (98-108); Creatinine, Serum 0.96 mg/dL (0.70-1.20); EST Glomerular Filtration Rate 81 (>60); Estimated Creatinine Clearance 69.23 ml/min (50-250); Globulin 2.5 g/dL (2.2-4.2); Glucose 105 mg/dL (70-99); Potassium 4.7 mmol/L (3.3-5.1); Protein, Total 6.8 g/dL (5.9-8.4); Sodium Level 143 mmol/L (133-145); Total Bilirubin 0.43 mg/dL (0.00-1.30)
== END 2024-11-10 06:47 | disposition home or self-care (01) ==
PROVIDERS: Emergency Provider Emergency Medicine; PCP Internal Medicine; Visit Provider Emergency Medicine
DX: R10.11 Right upper quadrant pain (principal); R10.13 Epigastric pain; R11.0 Nausea; I25.10 Atherosclerotic heart disease of native coronary artery without angina pectoris; I10 Essential (primary) hypertension; E78.5 Hyperlipidemia, unspecified
CPT/HCPCS: 74177; 80053; 81001; 83690; 85025; 96374; 96375; 99283; Q9967; A4216; J2405

== ENCOUNTER → 2024-11-12 | Outpatient (CLI) | payer MEDICARE, SELFPAY ==
--- NOTE | 2024-11-12 07:24 | US_ITS ---
PROCEDURE: ABDOMEN LIMITED 11/12/2024 REASON FOR EXAM: PAIN RUQ, NAUSEA History of hepatic cysts. COMPARISON: Comparison is made with prior CT scan dated November 10, 2024. FINDINGS: Liver: Diffusely echogenic suggesting fatty infiltration. There is a 2.5 cm x 2.3 cm 1.4 cm cyst in the right lobe of the liver. There is also evidence of a 1.2 cm x 1.7 cm x 0.9 cm cyst in the left lobe of the liver. Several smaller cysts are also seen. Gallbladder: Small amount of sludge is seen in the gallbladder lumen. The gallbladder wall is mildly thickened measuring 4 mm. Common bile duct: Normal measuring it measures 3 mm.. Pancreas: Visualized portions are sonographically unremarkable. Other: Visualized portions of the right kidney are unremarkable. No right upper quadrant ascites. US/Abdomen Limited IMPRESSION: Hepatic cysts. Small amount of sludge is seen in the gallbladder lumen. Minimal thickening of the gallbladder wall measuring 4 mm. Reading Location: [place] [id number]
== END | disposition home or self-care (01) ==
LOC: US 07:24
PROVIDERS: PCP Internal Medicine; Referring Provider Emergency Medicine; Visit Provider Emergency Medicine
DX: R10.11 Right upper quadrant pain (principal); R11.0 Nausea
CPT/HCPCS: 76705

== ENCOUNTER 2024-12-04 11:47 | Day surgery (SDC) | payer MEDICARE, SELFPAY ==
--- NOTE | 2024-12-02 10:10 | EKG12_ITS ---
Test Reason : PREOP Blood Pressure : */* mmHG Vent. Rate : 50 BPM Atrial Rate : 50 BPM P-R Int : 158 ms QRS Dur : 118 ms QT Int : 456 ms P-R-T Axes : 68 -40 -40 degrees QTcB Int : 415 ms Sinus bradycardia Left axis deviation Left ventricular hypertrophy with QRS widening Nonspecific ST and T wave abnormality Abnormal ECG Confirmed by Anand Lake ([id number]), manager editorial [employer] ([id number]) on 12/04/2024 10:08:15 AM Referred By: Ottoniel Rosas Confirmed By: Anand Lake
--- NOTE | 2024-12-02 12:35 | PAT.ANE_ITS ---
Pre-Assessment Diagnosis/Proposed Procedure Planned Operative Procedure(s): ROBOTIC CHOLECYSTECTOMY Anesthesia History Anesthesia History - head of transport logistics: Anesthesia History - head of transport logistics Hx Hospitalization Yes: 03/2024 DOUBLE BYPASS 11/28/24 11:08 Any Problems With Anesthesia No 11/28/24 11:08 Cholinesterase deficiency No 11/28/24 11:08 You/Your Family Experience No 11/28/24 11:08 fever (hyperthermia) with Relationship Recent Exposure to Contagious Disease Does patient have nerve No 11/28/24 11:08 stimulator Patient instructed to have device shut off --Does patient have Pacemaker or ICD? When Was Last Pacemaker Check QUESTION #4 FULL TEXT: You/Your Family Experience fever (hyperthermia) with Anesthesia Last Oral Intake Last Oral intake: Last Oral Intake NPO since Meds taken in AM with sips of water? 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 - head of transport logistics: PONV - head of transport logistics Female No 11/28/24 11:08 HX of Motion Sickness No 11/28/24 11:08 HX of N/V After Surgery No 11/28/24 11:08 Non-Smoker Yes 11/28/24 11:08 Duration of Surgery greater Yes 11/28/24 11:08 than 60 minutes Number of Risk Factors 2 11/28/24 11:08 PONV Score Moderate Risk 11/28/24 11:08 Height & Weight Height & Weight: Anesthesia: Height & Weight Height 5 ft 9 in 11/19/24 09:54 Respiratory Assessment Respiratory Assessment - head of transport logistics: Respiratory Tract Infection Hx - head of transport logistics Hx Respiratory Tract Infection No 11/28/24 11:08 STOP Sleep Apnea STOP Sleep Apnea - head of transport logistics: STOP Sleep Apnea - head of transport logistics Hx Hypertension Yes: CONTROLLED WITH MEDS 11/28/24 11:08 Hx Sleep Apnea No 11/28/24 11:08 CPAP No 08/13/17 14:03 BIPAP No 08/13/17 14:03 Do you snore loudly (louder Yes 11/28/24 11:08 than talking or can be heard Do you often feel tired/ No 11/28/24 11:08 fatigued/ sleepy during daytime? Has anyone observed you stop No 11/28/24 11:08 breathing during sleep? STOP Results Positive 11/28/24 11:08 QUESTION #5 FULL TEXT : Do you snore loudly (louder than talking or can be heard through closed doors)? 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 Use History - head of transport logistics: Tobacco Use History - head of transport logistics Tobacco Use Smoking Status Former smoker 11/28/24 11:08 Hx Tobacco Use No 11/28/24 11:08 Years Smoking Packs Smoked per Day Smoking Cessation Date was No - quit smoking greater 11/28/24 11:08 within the last 15 years than 15 years ago Hx Smoking Cessation Date Hx Smoking Cessation No 11/28/24 11:08 Counseling Hematologic Medial History Hematologic Hx - head of transport logistics: Hematologic Medical Hx - slab inspector Hx of Blood Transfusion Yes 11/28/24 11:08 Hx of Transfusion in last 3 No 11/28/24 11:08 Months Date of Last Transfusion (if within last 3 months) Ever experience any problems No 11/28/24 11:08 with transfusion(s)? Specify any problems Hx of Preganancy in last 3 N/A 11/28/24 11:08 Months Nurse Filling Out Transfusion DSCHRIBER 11/28/24 11:08 & Questions: Date: 11/28/24 11/28/24 11:08 Time: 11:11 11/28/24 11:08 Patient unable to answer at this time (ie. confused, unrespo /Reproduction History /Reproductive History - head of transport logistics: /Reproductive Hx- head of transport logistics Hx Now No 11/28/24 11:08 Gestational Age (in weeks): EDC: Hx Hx Para Hx Section SAB No 11/28/24 11:08 Active Medications Active Medications: Current Medications Generic Name Dose Route Start Last Admin Trade Name Freq PRN Reason Stop Dose Admin Indocyanine Green 3.75 mg/ N/A 1.5 mls @ 999 mls/hr 12/04/24 13:30 IV 12/04/24 13:31 PREOP [facility] Medical History Wears hearing aid Wears glasses Wears dentures Alcohol use Thyroid disease Arthritis Prostate disease DDD (degenerative disc disease), lumbar DDD (degenerative disc disease), cervical Syncope History of ulceration Former smoker Shortness of breath on exertion Cardiology follow-up encounter History of echocardiogram History of stress test Constipation Gallbladder problem Cervical stenosis of spine Essential (primary) hypertension Atherosclerotic heart disease of [place] coronary artery without angina pectoris Hyperlipemia Home Medications ?Medication ?Instructions ?Recorded ?Last Taken ?Type aspirin 81 mg tablet,delayed 81 mg PO QDAY preventativ e 07/30/17 03/04/24 History release (Adult Low Dose Aspirin) tamsulosin 0.4 mg capsule (Flomax) 0.4 mg PO QHS urine flow 07/30/17 08/12/17 History psyllium husk 3.4 gram/5.4 gram 1 tbsp PO DAILY Unknown History oral powder (Metamucil) rosuvastatin 40 mg tablet 40 mg PO QHS #30 tabs Unknown History cetirizine 10 mg tablet 10 mg PO DAILY 12/08/2202/20 History fluticasone propionate 50 1 spray intranasal DAILY PRN nasal 12/08/22 03/04/24 History mcg/actuation nasal congestion spray,suspension (Allergy Relief (fluticasone)) levothyroxine 112 mcg tablet 112 mcg PO DAILY 12/08/22 Unknown History (Euthyrox) lisinopril 20 mg tablet 20 mg PO BID #180 tabs 06/06 Unknown Rx amlodipine 5 mg tablet 5 mg PO QDAY #30 tabs Unknown Rx metoprolol tartrate 25 mg tablet 25 mg PO BID heart #1 80 tabs 08/06/24 Unknown Rx clobetasol 0.05 % scalp solution 1 applic topical PRN PRN SCALP 11/10/24 Unknown History Allergy/AdvReac Type Severity Reaction Status Date / Time bacitracin Allergy Unknown Rash Verified 11/28/24 11:04 polymyxin B Allergy Unknown Rash Verified 11/28/24 11:04 Family History Father Aortic aneurysm Hx of CABG Lung cancer Mother CHF (congestive heart failure) Myocardial infarction Sister Hypertension CVA (cerebral vascular accident) Hyperlipemia Surgical History S/P CABG x 2 History of ankle surgery (06/30/22) History of tonsillectomy History of herniorrhaphy History of squamous cell carcinoma excision History of thyroidectomy (07/2017) History of left heart catheterization (08/15/17) History of coronary artery stent placement (09/01/10) History of removal of nevus Social History household members: spouse housing: house current occupational status: retired Smoking Status: Former smoker second hand exposure: No alcohol intake: current alcohol intake frequency: holidays/special occasions only Alcohol type: beer substance use type: does not use caffeine: Yes Type: coffee Number of servings: 2 what type of physical activity do you participate in: none frequency: does not exercise seatbelt use: always Recommendation Anesthesia Recommendation Anesthesia recommendation: F/U recommended (New EKG prior to surgery )
--- NOTE | 2024-12-02 15:53 | PAT.ANESEVAL ---
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 When Was Last Pacemaker Check QUESTION #4 FULL TEXT: You/Your Family Experience fever (hyperthermia) with Anesthesia Last Oral Intake Last Oral intake: Last Oral Intake NPO since Meds taken in AM with sips of water? 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 Has anyone observed you stop No 11/28/24 11:08 breathing during sleep? STOP Results Positive 11/28/24 11:08 QUESTION #5 FULL TEXT : Do you snore loudly (louder than talking or can be heard through closed doors)? 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 Specify any problems Hx of Preganancy in last 3 N/A 11/28/24 11:08 Months Nurse Filling Out Transfusion DSCHRIBER 11/28/24 11:08 & Questions: Date: 11/28/24 11/28/24 11:08 Time: 11:11 11/28/24 11:08 Patient unable to answer at this time (ie. 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: /Reproductive Hx- trail maintenance worker Hx Now No 11/28/24 11:08 Gestational Age (in weeks): EDC: Hx Hx Para Hx Section SAB No 11/28/24 11:08 Active Medications Active Medications: Current Medications Generic Name Dose Route Start Last Admin Trade Name Freq PRN Reason Stop Dose Admin Indocyanine Green 3.75 mg/ N/A 1.5 mls @ 999 mls/hr 12/04/24 13:30 IV 12/04/24 13:31 PREOP ONE [facility] Medical History Wears hearing aid Wears glasses Wears dentures Alcohol use Thyroid disease Arthritis Prostate disease DDD (degenerative disc disease), lumbar DDD (degenerative disc disease), cervical Syncope History of ulceration Former smoker Shortness of breath on exertion Cardiology follow-up encounter History of echocardiogram History of stress test Constipation Gallbladder problem Cervical stenosis of spine Essential (primary) hypertension Atherosclerotic heart disease of [place] coronary artery without angina pectoris Hyperlipemia Home Medications ?Medication ?Instructions ?Recorded ?Last Taken ?Type aspirin 81 mg tablet,delayed 81 mg PO QDAY preventative 07/30/17 03/04/24 History release (Adult Low Dose Aspirin) tamsulosin 0.4 mg capsule (Flomax) 0.4 mg PO QHS urine flow 07/30/17 08/12/17 History psyllium husk 3.4 gram/5.4 gram 1 tbsp PO DAILY 03/18/19 Unknown History oral powder (Metamucil) rosuvastatin 40 mg tablet 40 mg PO QHS #30 tabs 03/18/19 Unknown History cetirizine 10 mg tablet 10 mg PO DAILY 12/08/22 03/04/24 History fluticasone propionate 50 1 spray intranasal DAILY PRN nasal 12/08/22 03/04/24 History mcg/actuation nasal congestion spray,suspension (Allergy Relief (fluticasone)) levothyroxine 112 mcg tablet 112 mcg PO DAILY 12/08/22 Unknown History (Euthyrox) lisinopril 20 mg tablet 20 mg PO BID #180 tabs 06/06/24 Unknown Rx amlodipine 5 mg tablet 5 mg PO QDAY #30 tabs 06/26/24 Unknown Rx metoprolol tartrate 25 mg tablet 25 mg PO BID heart #180 tabs 08/06/24 Unknown Rx clobetasol 0.05 % scalp solution 1 applic topical PRN PRN SCALP 11/10/24 Unknown History Allergy/AdvReac Type Severity Reaction Status Date / Time bacitracin Allergy Unknown Rash Verified 11/28/24 11:04 polymyxin B Allergy Unknown Rash Verified 11/28/24 11:04 Family History Father Aortic aneurysm Hx of CABG Lung cancer Mother CHF (congestive heart failure) Myocardial infarction Sister Hypertension CVA (cerebral vascular accident) Hyperlipemia Surgical History S/P CABG x 2 History of ankle surgery (06/30/22) History of tonsillectomy History of herniorrhaphy History of squamous cell carcinoma excision History of thyroidectomy (07/2017) History of left heart catheterization (08/15/17) History of coronary artery stent placement (09/01/10) History of removal of nevus Social History household members: spouse housing: house current occupational status: retired Smoking Status: Former smoker second hand exposure: No alcohol intake: current alcohol intake frequency: holidays/special occasions only Alcohol type: beer substance use type: does not use caffeine: Yes Type: coffee Number of servings: 2 what type of physical activity do you participate in: none frequency: does not exercise seatbelt use: always Recommendation Anesthesia Recommendation Anesthesia recommendation: OPTIMIZED for anesthesia
[2024-12-04] VITALS (11 sets, daily range): BP systolic 119–148; BP diastolic 64–75; PULSE 50–71; RESP 16–18; TEMP 36.1–36.7; O2SAT 92–99; BMI 27.3
[2024-12-04] MEDS: Lactated Ringers 1,000 ML 15 ML IV ×2 (12:29→15:52)
[2024-12-04] MEDS: INDOCYANINE GREEN 3.75 MG in Syringe 1.5 ML 999 MG IV (12:31)
--- NOTE | 2024-12-04 12:47 | PRE.ANES_ITS ---
ASA Classification* ASA Classification ASA Classification: 3 Assessment & Plan Anesthesia* Anesthesia Assessment Anesthesia Assessment: Discussed sedation and/or anesthesia options, risks, benefits, and alternatives with patient/parents/legal guardian/POA. Questions invited. The patient/parents/legal guardian/POA seems to understand and agrees to proceed with anesthesia plan. Reviewed the physical assessment, medical history, allergy history and patient home medications list prior to surgery/procedure/anesthetic and documented any changes. Performed airway and anesthesia risk assessments. Anesthesia Type Anesthesia Type: General History Source History Obtained from:: Patient and Chart Anesthesia Focused Assessment* Temperature: 97.0 F Pulse Rate: 50 Blood Pressure: 148/73 Respiratory Rate: 18 Pulse Ox: 98 Oxygen Delivery Method: Room Air Airway Assessment Mouth opens: >3 cm Mallampati Score: II Teeth Condition: Upper Focused Labs Anesthesia Preop lab: CBC WBC 7.7 K/mm3 (4.4-11.0) 11/10/24 04:45 11/10/24 RBC 5.19 M/mm3 (4.6-6.2) 11/10/24 04:45 11/10/24 Hgb 16.2 g/dL (13.0-16.5) 11/10/24 04:45 11/10/24 Hct 45.5 % (40-54) 11/10/24 04:45 11/10/24 Plt Count 190 K/mm3 (150-450) 11/10/24 04:45 11/10/24 CHEMISTRY Potassium 4.7 mmol/L (3.3-5.1) 11/10/24 04:55 11/10/24 Sodium 143 mmol/L (133-145) 11/10/24 04:55 11/10/24 Magnesium 2.2 mg/dL (1.6-2.6) 08/13/17 11:06 08/13/17 Phosphorus 4.0 mg/dL (2.5-4.9) 08/01/17 11:07 08/01/17 BUN 14 mg/dL (4-19) 11/10/24 04:55 11/10/24 Creatinine 0.96 mg/dL (0.70-1.20) 11/10/24 04:55 11/10/24 Glucose 105 mg/dL (70-99) H 11/10/24 04:55 11/10/24 TSH 0.370 uIU/mL (0.300-4.200) 12/02/24 10:32 0510/14 COAG PT 13.4 SECONDS (11.7-14.9) 08/15/17 05:20 Pre-Assessment Diagnosis/Proposed Procedure Planned Operative Procedure(s): ROBOTIC CHOLECYSTECTOMY Anesthesia History 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 When Was Last Pacemaker Check QUESTION #4 FULL TEXT: You/Your Family Experience fever (hyperthermia) with Anesthesia Last Oral Intake Last Oral intake: Last Oral Intake NPO since 22:00 12/04/24 12:16 Meds taken in AM with sips of No 12/04/24 12:16 water? 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 Has anyone observed you stop No 11/28/24 11:08 breathing during sleep? STOP Results Positive 11/28/24 11:08 QUESTION #5 FULL TEXT : Do you snore loudly (louder than talking or can be heard through closed doors)? 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 Specify any problems Hx of Preganancy in last 3 N/A 11/28/24 11:08 Months Nurse Filling Out Transfusion DSCHRIBER 11/28/24 11:08 & Questions: Date: 11/28/24 11/28/24 11:08 Time: 11:11 11/28/24 11:08 Patient unable to answer at this time (ie. 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: /Reproductive Hx- calculating machine mechanic Hx Now No 11/28/24 11:08 Gestational Age (in weeks): EDC: Hx Hx Para Hx Section SAB No 11/28/24 11:08 Active Medications Active Medications: Current Medications Generic Name Dose Route Start Last Admin Trade Name Freq PRN Reason Stop Dose Admin Indocyanine Green 3.75 mg/ N/A 1.5 mls @ 999 mls/hr 12/04/24 13:30 12/04/24 12:31 IV 12/04/24 13:31 999 mls/hr PREOP ONE Administration Cefotetan Disodium 2 gm/ 100 mls @ 200 mls/hr 12/04/24 13:15 Sodium Chloride IV 12/04/24 13:44 INTRAOP ONE Lactated Ringer's 1,000 mls @ 15 mls/hr 12/04/24 12:30 12/04/24 12:29 IV 15 mls/hr .Q48H EMRE Administration PFSH Medical History Wears hearing aid Wears glasses Wears dentures Alcohol use Thyroid disease Arthritis Prostate disease DDD (degenerative disc disease), lumbar DDD (degenerative disc disease), cervical Syncope History of ulceration Former smoker Shortness of breath on exertion Cardiology follow-up encounter History of echocardiogram History of stress test Constipation Gallbladder problem Cervical stenosis of spine Essential (primary) hypertension Atherosclerotic heart disease of [place] coronary artery without angina pectoris Hyperlipemia Home Medications ?Medication ?Instructions ?Recorded ?Last Taken ?Type aspirin 81 mg tablet,delayed 81 mg PO QDAY preventativ e 07/30/17 11/29/24 History release (Adult Low Dose Aspirin) tamsulosin 0.4 mg capsule (Flomax) 0.4 mg PO QHS urine flow 07/30/17 12/03/24 History psyllium husk 3.4 gram/5.4 gram 1 tbsp PO DAILY 12/02/24 History oral powder (Metamucil) rosuvastatin 40 mg tablet 40 mg PO QHS #30 tabs 12/03/24 History cetirizine 10 mg tablet 10 mg PO DAILY 12/08/2211/20 History fluticasone propionate 50 1 spray intranasal DAILY PRN nasal 12/08/22 12/03/24 History mcg/actuation nasal congestion spray,suspension (Allergy Relief (fluticasone)) levothyroxine 112 mcg tablet 112 mcg PO DAILY 12/08/22 12/04/24 History (Euthyrox) lisinopril 20 mg tablet 20 mg PO BID #180 tabs 06/0612/03/24 Rx amlodipine 5 mg tablet 5 mg PO QDAY #30 tabs 12/04/24 Rx metoprolol tartrate 25 mg tablet 25 mg PO BID heart #1 80 tabs 08/06/24 12/04/24 Rx clobetasol 0.05 % scalp solution 1 applic topical PRN PRN SCALP 11/10/24 Unknown History Allergy/AdvReac Type Severity Reaction Status Date / Time bacitracin Allergy Unknown Rash Verified 12/04/24 12:14 polymyxin B Allergy Unknown Rash Verified 12/04/24 12:14 Family History Father Aortic aneurysm Hx of CABG Lung cancer Mother CHF (congestive heart failure) Myocardial infarction Sister Hypertension CVA (cerebral vascular accident) Hyperlipemia Surgical History S/P CABG x 2 History of ankle surgery (06/30/22) History of tonsillectomy History of herniorrhaphy History of squamous cell carcinoma excision History of thyroidectomy (07/2017) History of left heart catheterization (08/15/17) History of coronary artery stent placement (09/01/10) History of removal of nevus Social History household members: spouse housing: house current occupational status: retired Smoking Status: Former smoker second hand exposure: No alcohol intake: current alcohol intake frequency: holidays/special occasions only Alcohol type: beer substance use type: does not use caffeine: Yes Type: coffee Number of servings: 2 what type of physical activity do you participate in: none frequency: does not exercise seatbelt use: always Prior Cardiac Testing/Procedures Prior Cardiac Testing/Procedures: Echocardiogram (03/25/2024 showed an ejection fraction normal at 64%) Addt'l Information Additional Findings: NSR on EKG Review of Systems (Anesthesia) ROS Narrative System reviewed and no additional complaints, except as documented. Physical Exam Const alert and oriented x3 Resp normal respiratory effort and normal air movement Cardio regular rate and regular rhythm Neuro oriented x3 and moves all extremities
--- NOTE | 2024-12-04 12:48 | PCM.HP.BLA ---
History and Physical Date of Admission: 12/04/24 Intake Vital Signs 11/11/2503:50 11/19/2508:54 Height 5 ft 9 in 5 ft 9 in Weight: 187 lb BMI 27.6 BP 140/82 H Blood Pressure Location Rt brachial Position Sitting Respiration 18 Pulse 74 Pulse Source Monitor Temp 98.1 F Temp Source Temporal Pulse Oximetry (%) 96 Oxygen Delivery Method room air Intake Visit Reasons: ed f/u- gallbladder Chief Complaint: ed f/u- gallbladder Is patient in pain?: No Allergies bacitracin Allergy (Unknown, Verified 11/19/24 09:55) Rashpolymyxin B Allergy (Unknown, Verified 11/19/24 09:55) Rash Medications ?Medication ?Instructions ?Recorded ?Confirmed ?Type aspirin 81 mg tablet,delayed 81 mg PO QDAY preventative 07/30/17 11/19/24 History release (Adult Low Dose Aspirin) tamsulosin 0.4 mg capsule (Flomax) 0.4 mg PO QDAY urine flow 07/30/17 11/19/24 History psyllium husk 3.4 gram/5.4 gram 1 tbsp PO DAILY 03/18/19 11/19/24 History oral powder (Metamucil) rosuvastatin 40 mg tablet 40 mg PO DAILY #30 tabs 03/18/19 11/19/24 History cetirizine 10 mg tablet 10 mg PO DAILY 12/08/22 11/19/24 History fluticasone propionate 50 1 spray intranasal DAILY PRN nasal 12/08/22 11/19/24 History mcg/actuation nasal congestion spray,suspension (Allergy Relief (fluticasone)) levothyroxine 112 mcg tablet 112 mcg PO DAILY 12/08/22 11/19/24 History (Euthyrox) lisinopril 20 mg tablet 20 mg PO BID #180 tabs 06/06/24 11/19/24 Rx amlodipine 5 mg tablet 5 mg PO QDAY #30 tabs 06/26/24 11/19/24 Rx metoprolol tartrate 25 mg tablet 25 mg PO BID heart #180 tabs 08/06/24 11/19/24 Rx clobetasol 0.05 % scalp solution 1 applic topical 11/10/24 11/19/24 History Have you fallen in the past year?: No PFSH Medical History (Updated 11/19/24 @ 10:[address] Ottoniel Rosas MD) Constipation Gallbladder problem Cervical stenosis of spine Essential (primary) hypertension Atherosclerotic heart disease of [place] coronary artery without angina pectoris Thyroid nodule Kidney stone Hyperlipemia Surgical History S/P CABG x 2 History of ankle surgery (06/30/22) History of tonsillectomy History of herniorrhaphy History of squamous cell carcinoma excision History of thyroidectomy (07/2017) History of left heart catheterization (08/15/17) History of coronary artery stent placement (09/01/10) History of removal of nevus Family History Father Aortic aneurysm Hx of CABG Lung cancerMother CHF (congestive heart failure) Myocardial infarctionSister Hypertension CVA (cerebral vascular accident) Hyperlipemia Social History household members: spouse housing: house current occupational status: retired Smoking Status: Never smoker second hand exposure: No alcohol intake: current alcohol intake frequency: holidays/special occasions only Alcohol type: beer substance use type: does not use caffeine: Yes Type: coffee Number of servings: 2 what type of physical activity do you participate in: none frequency: does not exercise seatbelt use: always HPI HPI HPI: Patient is a 79-year-old male who was recently in the emergency room with right upper quadrant pain. He had an ultrasound which showed sludge in the gallbladder. He reports that for a few years he has been having some aching in the right upper quadrant but he does not describe it as pain. This is the first time he had any pain associated with this. He says it radiated to the back when it happened. ROS General General: No weight change, appetite, fatigue, colon cancer, breast cancer or weakness HEENT HEENT: No difficulty swallowing, eye injury, eye surgery, swollen glands or hoarseness Endo Endocrine: Yes thyroid disease; No diabetes mellitus, thyroid cancer, Hair loss, heat intolerance or cold intolerance Skin Skin: No rash or changing moles Musc Musculoskeletal: Yes back problems and arthritis; No rheumatoid arthritis, gout or joint pain Cardio Cardiovascular: No murmur, pacemaker, heart disease, atrial fibrillation, high blood pressure, heart attack, heart stent, palpitations, shortness of breath with exertion or chest pain Psych Psychiatric: No depression, anxiety or hearing voices Resp Respiratory: No shortness of breath, No sleep apnea, No cough, No COPD, No asthma, No emphysema and No wheezing Gastro Gastrointestinal: Yes abdominal pain, No nausea or vomiting, No diarrhea, Yes constipation, No blood in stool, No acid reflux, No hemorrhoids, No ulcers, Yes gallbladder problem and No black,tarry stools [place] Hematologic: No blood thinners, No blood disorders, No bleeding, No anemia and No blood clots Neuro Neurologic: No numbness, No tingling and No weakness Exam Const General: cooperative Orientation: alert and oriented x3 HENMT Head: normal to inspection Neck Neck: normal visual inspection and full ROM Chest Chest palpation & inspection: normal inspection of the chest Resp Effort & Inspection: normal respiratory effort Auscultation: clear to auscultation bilaterally Cardio Rate: regular rate Rhythm: regular rhythm GI Inspection: non-distended Palpation: soft and nontender Skin General: no rashes or lesions noted Neuro General: patient alert and patient oriented x3 Extrem General: full ROM Psych Appearance: grossly normal Mental Status: mental status grossly normal Assessment and Plan Assessment and Plan (1) Gallbladder sludge: Status: Acute Plan: The patient has gallbladder sludge on ultrasound. He would like to avoid surgery right now if possible. He said that when he decides he is ready he will come back to see me. I discussed signs and symptoms of acute cholecystitis with him. He will call me or come to the emergency room if he experiences any of these signs or symptoms. Otherwise if his right upper quadrant pain becomes more severe he will come back for elective cholecystectomy. Ottoniel Rosas MD Pager: [facility] [address] [place] [address], [address] [place] [address] Office: I have examined the patient and the H&P has been reviewed. There are no clinical changes since date of exam. The patient was trying to avoid surgery but he was became more symptomatic and would like to proceed. I discussed the procedure in detail with the patient. I discussed the risks, benefits, and alternatives of the procedure. I discussed the risks including but not limited to bleeding, infection, injury to surrounding organs such as the liver, bile duct, bowels. I did discuss the possibility of having to convert to an open procedure as well as the possibility that if any injuries occurred this may necessitate further surgery at a tertiary care center.
--- NOTE | 2024-12-04 13:15 | GALL_PTH ---
PATIENT: ELADIA BARRERA LOC: [facility] [place] U#:[id number] AGE/SX: 79/M ROOM: RE12/04/[address]: Dr. Ottoniel Rosas MD : [id number] BED: DIS: 12/04/2024 SPEC #: [id number] RECD: 12/05/24 08:47 STATUS: ELLIOTT REJuan Carlos #: [id number] RAHUL: 12/04/24 13:[address]: Ottoniel Rosas DEPT: SURGICAL PATHOLOGY RECD BY: Norm Ng ENTERED: 12/05/24 10:16 SP TYPE: ASIM CISNEROS DR: Dr. Bart Waterman MD Tissues: A - Gallbladder, NOS Procedures: Surgery Specimen Level III Surgery Specimen Level V HEADER OPERATION: Robotic cholecystectomy with liver biopsy PRE-OP DIAGNOSIS: Gallbladder sludge TISSUE SUBMITTED: A- Gallbladder, B- Liver biopsy MICROSCOPIC DIAGNOSIS A. Gallbladder, cholecystectomy: * Mild chronic cholecystitis with cholelithiasis B. Liver, biopsy: * Fibrous tissue with focal microcalcifications * Hepatic tissue is not identified MICROSCOPIC DESCRIPTION Slides are reviewed. GROSS DESCRIPTION A. Received in formalin in a container labeled with the patient's name, date of , and gallbladder is a 7.3 x 2.5 x 2.4 cm intact cholecystectomy specimen. A clamped possible cystic duct margin is identified which is flush with the serosa and exhibits a diameter of approximately 0.2 cm (inked black). The serosa is within normal limits, and the specimen is opened to reveal an abundance of thick green bile with multiple black and friable stone fragments measuring approximately 1.0 x 1.0 x 0.3 cm in aggregate. The mucosa is bile-stained green and predominantly velvety. There is an average wall thickness of 0.4 cm. Lining Stamper sections are submitted in A1 (including cystic duct margin, en face with full-thickness sections). B. Received in formalin in a container labeled with the patient's name, date of , and liver biopsy is a white-brown, rubbery, and cauterized fragment of soft tissue measuring 1.0 x 0.7 x 0.5 cm. It is trisected to reveal white-harrell, rubbery surfaces. Submitted entirely in B1. [facility] 12-08-2024 CPT:71043,09218
[2024-12-04] MEDS: Cefotetan 2 GM in 0.9% Normal Saline (100mL MB+) 100 ML IV (13:37)
[2024-12-04] MEDS: Bupivacaine Mpf 0.5% 30 ML VIAL (14:30)
--- NOTE | 2024-12-04 14:32 | OP.PCM_ITS ---
Operative Report (Standard) Operative Information Date of Procedure: 12/04/24 Pre-Operative Diagnosis: Biliary sludge Post-Operative Diagnosis: Gallbladder sludge and liver lesion Surgery/Procedure Performed: Robotic assisted laparoscopic cholecystectomy with liver biopsy ocean transportation intermediary: Yes Plant Worker: Pop Navarrete Tasks completed by topographical field assistant: Opening & closing Type of Anesthesia: General/Regional RN Documented Start/Stop Times: Operation Date: 12/04/24 13:15 Case Time Into Pre-Op 12/04/24 12:04 Out of Pre-Op 12/04/24 13:30 Anesthesia Start 12/04/24 13:35 Into Room 12/04/24 13:35 Procedure Start 12/04/24 13:52 Procedure Start Time: 13:52 Procedure Stop Time: 14:35 Select all DRAINS/GRAFTS/IMPLANTS that apply: None Estimated Blood Loss: 5 Specimen collected: Yes Description of specimen(s) removed: 1. Gallbladder 2. Liver lesion Description of surgery: Patient was brought back to the operating room and general anesthesia was induced. The abdomen was prepped and draped in usual sterile fashion. Midline incision was made superior to the umbilicus and the fascia was grasped and elevated. A Veress needle was placed into the abdomen. Drop test was performed. The abdomen was insufflated to 15 mmHg. The Veress needle was removed and a port was placed into the abdomen. The abdomen was inspected for injuries and there were none. Patient was placed in reverse Trendelenburg and 2 ports were placed in the left upper quadrant and 1 port in the right upper quadrant and then the midline incision was upsized to a 12 mm port. The robot was then docked. The gallbladder was retracted cephalad and the infundibulum was retracted laterally. The peritoneum was stripped from the gallbladder and the cystic duct was identified as well as the cystic artery. The ICG assisted in identifying the cystic duct. The duct was clipped triply and divided the artery was dissected a little bit further and then clipped [place] and divided. The gallbladder was then taken off of the gallbladder fossa using electrocautery hook. The gallbladder was placed into a bag. There was a liver lesion medial to the gallbladder fossa that was suspicious so this was biopsied. Using a hook cautery the liver capsule was incised and the specimen was set for permanent section. There was good hemostasis. The gallbladder fossa was once again inspected and there was good hemostasis with no leaking bile. The instruments were removed. The midline incision fascia was closed with a [id number]-tpoir 0 Vicryl suture using a David Riley needle. The ports were then removed and allowed the abdomen to desufflate. The incisions were injected with local anesthetic and then closed with interrupted 4-0 Monocryl sutures with Steri- Strips and bandages being applied. Patient was awoken and taken to PACU in stable condition. Surgical Findings: None Complications Complications: No Admit VTE Documentation VTE Mechan Device Prophylaxis: SCD's
--- NOTE | 2024-12-04 14:36 | DCINST_ITS ---
Discharge Instructions Procedure Gallbladder Diet Discharge Diet: Light diet - advance as tolerated Activity Discharge Activity: May Not Drive (for 2-3 days or while taking narcotic pain medications.) and - (Do not drive, work heavy equipment or sign legal documents for 24 hours.) May shower in (days): 1 Lifting Restrictions: 20 lbs for 2 weeks Additional Activity Instructions:: Pain medication may cause nausea. You should typically eat light foods as you take your pain medications. Pain medication may also cause constipation. If this is a problem for you, please discuss with your doctor. Alternate ibuprofen and Tylenol for pain control, oxycodone for breakthrough pain Resume aspirin tomorrow Dressing / Incision Call your doctor if your incision/area has: Continuous Slow Oozing, Sudden Increased Bleeding, Increased Pain/ Swelling, Increased Redness and Foul Smelling Discharge Call your doctor if you observe: Fever of 101 or Higher Suture Line Care: Avoid Pulling/Pushing and Avoid Pinching/Bending Remove Dressing in: 2 days Cleanse incision/area with: Soap & Water Additional Dressing/Incision Instructions:: Leave operative bandaids on for 2 days. When you remove dressing, leave Steri-Strips on until your follow-up appointment, or until the Steri-Strips fall off on their own. Follow Up Care Please Follow Up With: Ottoniel Rosas MD When: Please call to schedule 2 week follow up appointment. [phone] Test Results: Test results from this visit will be discussed in further detail at your follow- up appointment, if applicable. Discharge Plan Admission Attending Provider: Ottoniel Rosas Primary Care Provider: Bart Waterman Instructions Print Language: Japanese Discharge Orders/Prescriptions Prescriptions: New oxycodone 5 mg Tablet 5 - 10 mg PO Q4H PRN PRN (Reason: Pain Score 4-10) 5 Days Qty: 14 0RF No Action tamsulosin [Flomax] 0.4 mg capsule,extended release 24hr 0.4 mg PO QHS aspirin [Adult Low Dose Aspirin] 81 mg tablet,delayed release (DR/EC) 81 mg PO QDAY rosuvastatin 40 mg tablet 40 mg PO QHS Qty: 30 Patient Comments: TAKE 1 TABLET BY MOUTH EVERY DAY Metamucil 3.4 gram/5.4 gram powder 1 tbsp PO DAILY levothyroxine [Euthyrox] 112 mcg tablet 112 mcg PO DAILY cetirizine 10 mg tablet 10 mg PO DAILY fluticasone propionate [Allergy Relief (fluticasone)] 50 mcg/actuation spray,suspension 1 spray intranasal DAILY PRN (Reason: nasal congestion) Rx Instructions: administer into each nostril metoprolol tartrate 25 mg tablet 25 mg PO BID Qty: 180 3RF clobetasol 0.05 % solution 1 applic TOPICAL PRN PRN (Reason: SCALP) Patient Comments: APPLY FEW DROPS ALONG HAIRLINE & MASSAGE INTO SKIN 1-2X DAILY X2 WKS, THEN TAKE 1 WK BREAK lisinopril 20 mg tablet 20 mg PO BID Qty: 180 3RF amlodipine 5 mg tablet 5 mg PO QDAY Qty: 30 11RF Referrals / Follow Up: Bart Waterman MD [Primary Care Provider] - Disposition Disposition (needs filled in before D/C Order can be placed): Home, Self Care
--- NOTE | 2024-12-04 14:49 | PCM.POST.ANE ---
Anesthesia: Postop Eval I Current Vital Signs Temperature: 97.9 F Pulse Rate: 71 Blood Pressure: 133/69 Respiratory Rate: 16 Pulse Ox: 96 Oxygen Delivery Method: Room Air Assessment Airway patent: Yes Spontaneous unlabored respirations: Yes Mental status: Awake and Calm nausea: No Vomiting: No Anesthesia Complication: No Fluid Hydration Crystalloid volume administer (ml): 500 Total IV fluid infused: 500 Progress Note Anesthesia document: Postop Eval 1 completed: Yes
--- NOTE | 2024-12-04 15:18 | POSTOPAN2_ITS ---
Anesthesia Postop Eval I Sum Postop Eval Completion status Anesthesia document: Postop Eval 1 completed: Yes Anesthesia Postop Eval I Summary Anesthesia Postop Eval I Summary: Anesthesia Postop Eval I: Assessment Summary Airway patent Yes 12/04/24 14:51 SPEECH AND LANGUAGE CLINICIAN.[email or web address] Spontaneous unlabored Yes 12/04/24 14:51 SPEECH AND LANGUAGE CLINICIAN.[email or web address] respirations Mental status Awake,Calm 12/04/24 14:51 SPEECH AND LANGUAGE CLINICIAN.[email or web address] nausea No 12/04/24 14:51 SPEECH AND LANGUAGE CLINICIAN.[email or web address] Vomiting No 12/04/24 14:51 SPEECH AND LANGUAGE CLINICIAN.[email or web address] Anesthesia Postop Eval I: Fluid Summary Crystalloid volume administer 500 12/04/24 14:51 SPEECH AND LANGUAGE CLINICIAN.GDOTT (ml) Colloids volume administered ( ml) Blood Product volume administered (ml) Total IV fluid infused 500 12/04/24 14:51 SPEECH AND LANGUAGE CLINICIAN.GDOTT Anesthesia Postop Eval I: Summary Notes Anesthesia Complication No 12/04/24 14:51 SPEECH AND LANGUAGE CLINICIAN.[email or web address] Anesthesia Complication Comment: Post-operative progress note Anesthesia: Postop Eval II Evaluation Mental status: Awake and Calm Pain Level: 4 nausea: No Vomiting: No Complications Anesthesia Complication: No
--- NOTE | 2024-12-04 15:18 | PCM.POSTANE2 ---
Anesthesia Postop Eval I Sum Postop Eval Completion status Anesthesia document: Postop Eval 1 completed: Yes Anesthesia Postop Eval I Summary Anesthesia Postop Eval I Summary: Anesthesia Postop Eval I: Assessment Summary Airway patent Yes 12/04/24 14:51 ACQUISITION [email or web address] Spontaneous unlabored Yes 12/04/24 14:51 ACQUISITION [email or web address].[email or web address] respirations Mental status Awake,Calm 12/04/24 14:51 ACQUISITION [email or web address].[email or web address] nausea No 12/04/24 14:51 ACQUISITION [email or web address].[email or web address] Vomiting No 12/04/24 14:51 ACQUISITION [email or web address].[email or web address] Anesthesia Postop Eval I: Fluid Summary Crystalloid volume administer 500 12/04/24 14:51 ACQUISITION [email or web address].[email or web address] (ml) Colloids volume administered ( ml) Blood Product volume administered (ml) Total IV fluid infused 500 12/04/24 14:51 ACQUISITION [email or web address].[email or web address] Anesthesia Postop Eval I: Summary Notes Anesthesia Complication No 12/04/24 14:51 ACQUISITION [email or web address].[email or web address] Anesthesia Complication Comment: Post-operative progress note Anesthesia: Postop Eval II Evaluation Mental status: Awake and Calm Pain Level: 4 nausea: No Vomiting: No Complications Anesthesia Complication: No
[2024-12-04] MEDS: Acetaminophen 325 MG Tablet 650 MG PO (16:48)
== END 2024-12-04 17:44 | disposition home or self-care (01) ==
LOC: SDC 11:47 → AC 11:52
PROVIDERS: Anesthesiology; PCP Internal Medicine; Referring Provider Surgery; Visit Provider Surgery
PROC: 0FT44ZZ Resection of Gallbladder, Percutaneous Endoscopic Approach (ICD-10-PCS; CPT 47562; principal; 2024-12-04 12:55)
DX: K80.10 Calculus of gallbladder with chronic cholecystitis without obstruction (principal); I10 Essential (primary) hypertension; I25.10 Atherosclerotic heart disease of native coronary artery without angina pectoris; E78.5 Hyperlipidemia, unspecified; Z79.899 Other long term (current) drug therapy; Z87.891 Personal history of nicotine dependence; Z79.82 Long term (current) use of aspirin; Z79.890 Hormone replacement therapy; E07.9 Disorder of thyroid, unspecified; K76.89 Other specified diseases of liver
CPT/HCPCS: 47562; 47379; S2900; 00790; 36415; 84443; 88304; 88307; 93005; J2405

== ENCOUNTER → 2025-02-13 | Outpatient (CLI) | payer OTHER, SELFPAY ==
--- NOTE | 2025-02-13 11:20 | ECHOD_ITS ---
Reason For Study Reason For Study: Atherosclerotic Heart Disease Procedure This was a 2D Doppler, Color Flow transthoracic echocardiogram. Exam performed in department. Left Ventricle Normal LV size. Left ventricular systolic function is normal. The left ventricular ejection fraction is 60 %. Stage 1 diastolic dysfunction. No regional wall motion abnormalities noted. Right Ventricle Normal RV size. Normal systolic function. Atria Normal left atrium. Normal right atrium. Mitral Valve Normal mitral valve. Mild (1+) eccentric mitral valve insufficiency. Tricuspid Valve Normal tricuspid valve. Mild tricuspid valve insufficiency. Pulmonary artery systolic pressure is 23 mmHg. Aortic Valve Trisinus/trileaflet aortic valve. Pulmonic Valve Normal pulmonic valve. Great Vessels Normal aortic root. The pulmonary artery is normal size. Inferior vena cava collapse with respiration. Pericardium/Pleural No pericardial effusion. MMode/2D Measurements & Calculations LVIDd: 5.1 cm IVSd: 1.2 cm Ao root diam: 3.1 cm LVIDs: 3.2 cm LVPWd: 1.0 cm RVDd: 3.8 cm FS: 37.7 % LAV(MOD-bp): 43.3 ml LVAd ap4: 25.6 cm2 SV(MOD-sp4): 40.3 ml LAV(MOD-bp) Indexed: 21.5 ml/m2 LVLd ap4: 7.2 cm SI(MOD-sp4): 20.0 ml/m2 LAV(MOD-sp2): 43.9 ml EDV(MOD-sp4): 73.6 ml LAV(MOD-sp4): 38.8 ml EDV(sp4-el): 76.7 ml LVAs ap4: 15.2 cm2 LVLs ap4: 6.0 cm ESV(MOD-sp4): 33.3 ml ESV(sp4-el): 32.5 ml EF(MOD-sp4): 54.8 % EF(sp4-el): 57.7 % SV(sp4-el): 44.3 ml LA A4 area: 15.9 cm2 LA dimension(2D): 3.9 cm RA A4 area: 14.8 cm2 TAPSE: 1.3 cm Time Measurements MV dec time: 0.23 sec Doppler Measurements & Calculations MV E max benito: 64.5 cm/sec Lat Peak E' Benito: 9.0 cm/sec Med Peak E' Benito: 5.6 cm/sec MV A max benito: 78.5 cm/sec E/E' lat: 7.2 E/E' med: 11.4 MV E/A: 0.82 Ao V2 max: 117.0 cm/sec LV V1 max: 87.1 cm/sec MV dec slope: 277.7 cm/sec2 Ao max P.5 mmHg LV V1 max P.0 mmHg Ao V2 mean: 78.9 cm/sec LV V1 mean P.7 mmHg Ao mean P.9 mmHg LV V1 mean: 60.8 cm/sec Ao V2 VTI: 29.7 cm LV V1 VTI: 22.6 cm AV (velocity ratio): 0.76 PA V2 max: 122.2 cm/sec PI end-d benito: 75.2 cm/sec TR max benito: 224.6 cm/sec TR max P.2 mmHg ECHO/Echo Complete Interpretation Summary Normal LV size. Left ventricular systolic function is normal. Mild (1+) eccentric mitral valve insufficiency. The left ventricular ejection fraction is 60 %. Stage 1 diastolic dysfunction. Pulmonary artery systolic pressure is 23 mmHg. Ordering Physician: Truong Munroe Referring Physician: Bart Waterman Performed By: Lynda Sun, RUBY, RVT
[2025-02-13 12:35] LABS: Free T3 2.7 pg/mL (2.18-3.98)
== END | disposition home or self-care (01) ==
LOC: CVS 11:09
PROVIDERS: PCP Internal Medicine; Referring Provider Chiropractor; Visit Provider Chiropractor
DX: I25.10 Atherosclerotic heart disease of native coronary artery without angina pectoris (principal); E03.9 Hypothyroidism, unspecified
CPT/HCPCS: 36415; 84439; 84443; 84481; 93306